=== PATIENT | male | born 1945 | race Caucasian/White ===

== ENCOUNTER 2016-10-24 13:00 | Day surgery (SDC) | payer BC, MEDICARE ==
[~2016-10-24 13:00] MED LIST: ASPIRIN EC81 MG PO; BYSTOLIC20 M1 PO; COLESTID1 GM PO; EDARBYCLOR 40-1 EAC3 PO; FLONASE ALLERG9.9 ML; LIPITOR80 M1 PO; MOMETASONE FURO45 G1 TOP; NEURONTIN100 M1 PO; PROTONIX40 M2 PO
[2016-10-25] MEDS ORDERED: NORCO 5-325 TA1 EACH PO (11:05)
[2016-10-25] MEDS ORDERED: CYCLOBENZAPRINE5 M1 PO (11:10)
[2016-10-25] MEDS ORDERED: KEFLEX500 M4 PO (11:11)
== END 2016-10-25 14:25 ==
LOC: SRG 13:00 → SHSA 13:01 → ORE 15:54 → PACU 17:39 → 5EC 19:00
PROC: 01NB0ZZ Release Lumbar Nerve, Open Approach (ICD-10-PCS; principal; 2016-10-24)
DX: M48.07 Spinal stenosis, lumbosacral region (principal); M51.17 Intervertebral disc disorders with radiculopathy, lumbosacral region; M47.27 Other spondylosis with radiculopathy, lumbosacral region; I10 Essential (primary) hypertension; I25.10 Atherosclerotic heart disease of native coronary artery without angina pectoris; M19.90 Unspecified osteoarthritis, unspecified site; K21.9 Gastro-esophageal reflux disease without esophagitis; Z88.1 Allergy status to other antibiotic agents; Z88.8 Allergy status to other drugs, medicaments and biological substances; Z90.49 Acquired absence of other specified parts of digestive tract; Z98.890 Other specified postprocedural states
CPT/HCPCS: G8978-GP-CJ; G8979-GP-CI; G8980-GP-CJ; G8987-GO-CJ; G8988-GO-CI; G8989-GO-CJ; J0690; J1170; J2405